=== PATIENT | male | born 1985 | race Hispanic/Latino ===

== ENCOUNTER 2020-07-09 14:44 | Emergency (ER) | payer BC, SELFPAY ==
--- NOTE | 2020-07-09 14:53 | ED.URI ---
HPI - URI/Sore Throat General Chief Complaint: Upper Respiratory Infection Stated Complaint: Cough,Sore Throat Time Seen by Provider: 07/09/20 14:53 Source: patient and RN notes reviewed History of Present Illness HPI Narrative: Patient is a 34-year-old male who presents the urgent care with complaints of a cough at night for the last 2 weeks. Patient states he started with a sore throat on Friday and a headache this morning. Patient states that he has been using Robitussin as well as NyQuil without relief. Patient denies of any known exposure to strep or flu. Denies any fever, chills, nausea, vomiting, shortness of breath. No other acute complaints. No acute distress noted. Patient aware of plan of care. Some parts of this dictation were generated by voice recognition software and may contain typographical and/or grammatical inaccuracies. Related Data Allergies Allergy/AdvReac Type Severity Reaction Status Date / Time No Known Allergies Allergy Mild Unverified 07/09/20 14:55 Review of Systems Review of Systems: Narrative: CONSTITUTIONAL: Denies fever, chills, or sweats. EYES: Denies visual changes, redness, or discharge. ENT: Reports of sore throat CARDIOVASCULAR: Denies chest pain, palpitations, or edema. RESPIRATORY: Reports of cough exacerbated at night without dyspnea GASTROINTESTINAL: Denies abdominal pain, nausea, vomiting, or diarrhea. GENITOURINARY: Denies dysuria or hematuria. SKIN: Denies rash or itching. MUSCULOSKELETAL: Denies back pain, joint pain, or myalgia. NEUROLOGIC: Denies headache, numbness, or weakness. All other systems reviewed are negative, except as documented in HPI. PMFSH Social History Social History Gender identity (if verbalized by the patient): Male Comments At the time of my signature, I reviewed and agree with the nursing past medical, surgical, social, and family history. There is no relevant family history pertinent to the patient complaint. Exam Narrative: Exam Narrative: GENERAL: This is a well-nourished, well-developed patient, in no apparent distress. HEAD: normocephalic, atraumatic. EYES: PERRL. Sclera clear/white. Vision is grossly intact. EARS: External ears normal, auditory canals clear and without drainage, TMs normal without perforation. Hearing grossly intact. NOSE: External nose normal with no obvious nasal discharge, nares without redness, no rhinorrhea. THROAT: Mucous membranes moist, moderate erythema noted to posterior oropharynx with mild bilateral tonsillar edema/erythema with mild postnasal drainage. NECK: Neck supple, non-tender without lymphadenopathy, masses or thyromegaly. CARDIOVASCULAR: Regular rate and rhythm without murmurs, gallops, or rubs. RESPIRATORY: Clear to auscultation. Breath sounds equal bilaterally. No wheezes, rales, or rhonchi. SKIN: warm, intact with no suspicious lesions or rash, good texture and turgor. NEURO: awake, alert, and oriented to person, place and time. There were no obvious focal neurologic abnormalities. EXTREMITIES: No clubbing, cyanosis, or edema. Course Vital Signs Vital signs: Vital Signs Temperature 98.1 F 07/09/20 15:01 Pulse Rate 69 07/09/20 15:01 Respiratory Rate 18 07/09/20 15:01 Blood Pressure 146/94 H 07/09/20 15:01 Pulse Oximetry 96 07/09/20 15:01 Temperature 98.1 F 07/09/20 15:01 Pulse Rate 69 07/09/20 15:01 Respiratory Rate 18 07/09/20 15:01 Blood Pressure 146/94 H 07/09/20 15:01 Pulse Oximetry 96 07/09/20 15:01 Reviewed-patient is informed that they may have pre-hypertension or hypertension based on a blood pressure reading in the department. I recommend the patient call the primary care provider listed on their discharge instructions or a physician of their choice this week to arrange follow-up for further evaluation of possible pre-hypertension or hypertension. MDM - URI/Sore Throat MDM Narrative Medical decision making narrative: Reviewed lab results with the patient.
[2020-07-09 15:01] VITALS: BP 146/94; PULSE 69; RESP 18; TEMP 36.7; O2SAT 96
== END 2020-07-09 15:21 | disposition home or self-care (01) ==
PROVIDERS: Emergency Provider Nurse Practitioner Family
DX: R05 Cough (principal); J02.9 Acute pharyngitis, unspecified; I10 Essential (primary) hypertension
CPT/HCPCS: 87081; 87880; 99213; G0463

== ENCOUNTER 2020-10-16 23:07 | Emergency (ER) | payer BC, SELFPAY ==
--- NOTE | ~2020-10-16 | CT_ITS ---
EXAMINATION: CT abdomen pelvis w con DATE: 10/17/2020 00:53 INDICATION: Diffuse abdominal pain TECHNIQUE: Computed tomography (CT) of the abdomen and pelvis was performed with 100 cc Omnipaque 350 intravenous contrast. The dose-length product was 637.46 mGy-cm. Automated exposure control and iter ative reconstruction technique were employed. COMPARISON: CT dated 05/11/2019 FINDINGS: There is dependent atelectasis. No significant pleural or pericardial effusion. Borderline heart size. There are mildly distended fluid-filled small bowel loops with air-fluid levels. There ar e areas of small bowel wall thickening findings suspicious for enteritis. There is moderate fluid and debris in the stomach. Fatty infiltration of the liver. The spleen, pancreas, adrenal glands and kidneys are unremarkable. G allbladder is contracted. No significant vascular abnormality. No lymphadenopathy. No free air or ronnie e fluid. Colonic diverticulosis without evidence for diverticulitis. No abnormal pelvic masses or flu id collections. No acute osseous abnormality. IMPRESSION: 1. Mildly dilated fluid-filled small bowel loops with air-fluid levels extending to the cecum. Findin gs suspicious for enteritis versus ileus. No definite obstruction. 2: Hepatic steatosis. Reviewed, dictated and finalized at location A. IMPRESSION: 1. Mildly dilated fluid-filled small bowel loops with air-fluid levels extendin g to the cecum. Findings suspicious for enteritis versus ileus. No definite obs truction. 2: Hepatic steatosis.
[2020-10-16 23:14] VITALS: BP 160/88; PULSE 69; RESP 18; TEMP 36.6; O2SAT 97
[2020-10-17 00:15] VITALS: BP 181/98; PULSE 75; RESP 20; O2SAT 100
[2020-10-17 00:22] LABS: Basophils Percent Auto 0.3 % (0.2-1.2); Eosinophils Absolute Auto 0.2 K/mm3 (0-0.3); Eosinophils Percent Auto 2.1 % (0-4.4); Hematocrit 43.5 % (42.0-52.0); Hemoglobin 14.6 g/dL (14.0-18.0); Immature Granulocyte Absolute 0.08 K/mm3 (0.00-0.031); Immature Granulocyte Percent A 0.8 % (0-0.5); Lymphocytes Absolute Auto 1.92 K/mm3 (0.9-3.2); Lymphocytes Percent Auto 20.4 % (18.3-44.2); Mean Corpuscular HGB Conc 33.6 g/dl (32-36); Mean Corpuscular Hemoglobin 30.7 pg (26-34); Mean Corpuscular Volume 91.6 fl (80-100); Monocytes Absolute Auto 0.7 K/mm3 (0.1-0.6); Monocytes Percent Auto 7.3 % (2.6-8.5); Neutrophils Absolute Auto 6.5 K/mm3 (1.3-6.7); Neutrophils Percent Auto 69.1 % (45.5-73.1); Platelet Count Result 236 k/mm3 (150-375); Red Blood Count 4.75 M/mm3 (4.6-6.20); Red Cell Distribution Width 12.6 % (11.5-14.5); White Blood Count 9.4 K/mm3 (4.5-10.0)
[2020-10-17 00:32] LABS: Alanine Aminotransferase 48 U/L (4-50); Albumin Level 3.9 g/dL (3.5-5.1); Alkaline Phosphatase 135 U/L (38-126); Anion Gap 11 mmol/L (8-16); Aspartate Amino Transferase 34 U/L (17-59); Bilirubin,Total 0.5 mg/dL (0.2-1.3); Blood Urea Nitrogen 10 mg/dL (9-20); Calcium 8.8 mg/dL (8.4-10.2); Carbon Dioxide 24 mmol/L (22-30); Chloride 103 mmol/L (98-107); Estimated CRCL calculation 103 ml/min; Estimated Glomerular Filt Rate > 60; Glucose 192 mg/dL (75-110); Lipase 174 U/L (23-300); Potassium 3.5 mmol/L (3.4-5.0); Sodium 138 mmol/L (137-145)
[2020-10-17] MEDS: BELLADONNA ALK/PHENOB ELIX 10 ML, MAG HYDROX/ALUMINUM HYD/SIMETH 30 ML, LIDOCAINE HCL 2... PO (01:09)
[2020-10-17 01:24] LABS: Add Urine Microscopic? YES; Appearance Urine Clear (Clear); Bilirubin Urine Negative (Negative); Blood Urine Negative (Negative); Color Urine Yellow (Yellow); Glucose Urine UA 1+ mg/dL (Negative); Ketones Urine Negative (Negative); Leukocyte Esterase Ur Negative LEU/UL (Negative); Mucus Urine Rare /lpf; Nitrate Urine Negative (Negative); Protein Urine Negative (Negative); Squamous Epithelial Cell Urine Rare /hpf (Few); WBC Urine 0-3 /hpf
--- NOTE | 2020-10-17 01:47 | ED.ABDPAIN ---
HPI - Abdominal Pain General Chief Complaint: Abdominal Pain Stated Complaint: abd pain in the mornings Time Seen by Provider: 10/16/20 23:31 Source: patient Mode of arrival: ambulatory Limitations: no limitations History of Present Illness HPI narrative: 35-year-old male Generally in good health Complains of his abdomen feeling bloated and uncomfortable he woke up this morning Symptoms more or less went away during the day but returned this evening and are more severe No constipation no diarrhea no vomiting and no fever Denies prior surgeries, does not smoke occasional drink or use NSAIDs Related Data Allergies Allergy/AdvReac Type Severity Reaction Status Date / Time No Known Allergies Allergy Mild Verified 10/17/20 00:38 Review of Systems Review of Systems: All systems reviewed & are unremarkable except as noted in HPI and below Constitutional: Constitutional: Reports no additional constitutional complaints, Denies chills, Denies fever(s) and Denies headache(s) Eyes: Eyes: Reports no additional eye complaints and Denies change in vision ENT: Denies headache(s) and Denies sore throat Cardiovascular: Cardiovascular: Denies chest pain and Denies dyspnea Respiratory: Respiratory: Denies cough and Denies dyspnea Gastrointestinal: Gastrointestinal: Reports abdominal pain, Reports bloating, Denies diarrhea, Reports nausea and Denies vomiting Genitourinary: Genitourinary: Denies dysuria and Denies urinary frequency Musculoskeletal: Musculoskeletal: Denies deformity, Denies arthralgias, Denies joint swelling and Denies numbness Integumentary/Breasts: Skin/Breast: Denies rash and Denies wounds Neurologic: Denies headache(s), Denies focal weakness and Denies numbness Psychiatric: Psychiatric: Reports no additional psychiatric complaints Endocrine: Endocrine: Reports no additional endocrine complaints Hematologic/Lymphatic: Hematologic/Lymphatic: Reports no additional hematologic/lymphatic complaints Allergic/Immunologic: Allergic/Immunologic: Reports no additional allergic/immunologic complaints [facility] Social History Social History Gender identity (if verbalized by the patient): Male Exam Const: General: cooperative and no acute distress Orientation/consciousness: patient oriented x3 (alert) HENMT: Head: normal to inspection, normocephalic and atraumatic Ears: external ears normal General nose exam: no epistaxis Eyes: Conjunctivae: conjunctivae normal EOM: EOMs intact bilaterally Neck: Neck: normal visual inspection, supple and no JVD Resp: Effort & Inspection: normal respiratory effort and not labored Auscultation: no rales, no rhonchi, no wheezes and other (BS =) Cardio: Rate: regular rate Rhythm: regular rhythm Heart sounds: no murmurs GI: GI Palp: Yes Soft to palpation, Yes Tenderness to palpation present (GI) (Mild diffuse), No Guarding due to palpation present (GI) and No Rebound tenderness present Other: Questionable distention Back/Spine/Pelvis: Back: no CVA tenderness Skin: General skin exam: normal color and no rashes or lesions noted Neuro: General: patient oriented x3 (alert) and moves all extremities Speech: normal speech Extrem: General: normal to inspection and no pedal edema Psych: Affect: normal affect Course Vital Signs Vital signs: Vital Signs Temperature 36.6 C 10/16/20 23:14 Pulse Rate 69 10/16/20 23:14 Respiratory Rate 18 10/16/20 23:14 Blood Pressure 160/88 H 10/16/20 23:14 Pulse Oximetry 97 10/16/20 23:14 Temperature 36.6 C 10/16/20 23:14 Pulse Rate 75 10/17/20 00:15 Respiratory Rate 20 10/17/20 00:15 Blood Pressure 181/98 H 10/17/20 00:15 Pulse Oximetry 100 10/17/20 00:15 MDM - Abdominal Pain Lab Data Result diagrams: 10/17/20 00:15 10/17/20 00:15 Labs: Lab Results 10/17/20 10/17/20 10/17/20 Range/Units 00:15 00:15 01:15 WBC 9.4 (4.5-10.0) K/mm3 RBC 4.75 (4.6-
[2020-10-17 01:50] LABS: Specific Grav Ur 1.051 (1.001-1.035)
[2020-10-17 02:06] VITALS: BP 168/90; PULSE 76; RESP 18; O2SAT 99
== END 2020-10-17 02:06 | disposition home or self-care (01) ==
PROVIDERS: Emergency Provider Emergency Medicine
DX: K56.7 Ileus, unspecified (principal)
CPT/HCPCS: 36415; 74177; 80053; 81001; 83690; 85025; 99284; A9270; Q9967

== ENCOUNTER 2021-07-29 08:20 | Emergency (ER) | payer BC, SELFPAY ==
--- NOTE | ~2021-07-29 | XR_ITS ---
EXAMINATION: XR abdomen/kub 1V DATE: 07/29/2021 09:00 INDICATION: 2 days of intermittent left anterior abdominal pain TECHNIQUE: A supine view of the abdomen on 2 radiographs was obtained. COMPARISON: CT dated 10/17/2020 FINDINGS: Small amount of gas scattered throughout the small bowel and colon with moderate amount stool in the ascending colon. No dilated loops of gas-filled bowel to suggest obstruction. Lung bases are clear. B ones are unremarkable. IMPRESSION: 1. Normal bowel gas pattern. Reviewed, dictated and finalized at location A.
[2021-07-29 08:28] VITALS: BP 153/88; PULSE 63; RESP 16; TEMP 36.3; O2SAT 98
--- NOTE | 2021-07-29 08:50 | ED.ABDPAIN ---
HPI - Abdominal Pain General Chief Complaint: Unspecified Stated Complaint: left side pain Time Seen by Provider: 07/29/21 08:42 Source: patient and RN notes reviewed Mode of arrival: ambulatory Limitations: no limitations History of Present Illness HPI narrative: Patient presents today complaining of intermittent left upper quadrant abdominal pain x2 days. Describes the pain as sharp and stabbing, but is currently pain-free. Denies any additional associated symptoms to include fever, nausea, vomiting, diarrhea, constipation. Denies any urinary symptoms. States that symptoms last for approximately 2 minutes with a, low that rapidly resolve. Last bowel movement was yesterday. He has tried no medication for symptoms prior to arrival. History of ileus in the past. MD elicited complaint: abdominal pain Related Data Allergies Allergy/AdvReac Type Severity Reaction Status Date / Time No Known Allergies Allergy Mild Verified 07/29/21 08:42 Review of Systems Review of Systems: CONSTITUTIONAL: Denies body aches, fever, chills, or sweats. EYES: Denies visual changes, redness, or discharge. ENT: Denies rhinorrhea, congestion, sore throat, or otalgia. CARDIOVASCULAR: Denies chest pain, palpitations, or edema. RESPIRATORY: Denies cough or dyspnea. GASTROINTESTINAL: Denies nausea, vomiting, or diarrhea. + Abdominal pain GENITOURINARY: Denies dysuria or hematuria. SKIN: Denies rash, itching, or wounds. MUSCULOSKELETAL: Denies back pain, joint pain, or myalgia. NEUROLOGIC: Denies headache, numbness, tingling, or weakness. PSYCH: Denies depression or anxiety. PMFSH Social History Social History Gender identity (if verbalized by the patient): Male Comments At time of signature, I have reviewed and agree with nursing past medical, surgical, social and family history unless otherwise noted. Please see nursing chart for further information. There is no relevant family history pertinent to the presenting complaint Exam Narrative: GENERAL: Well-appearing, well-nourished, and in no acute distress. HEAD: Normocephalic, atraumatic. EYES: EOMI. No redness or drainage. Conjunctivae normal. ENT: Mucous membranes pink and moist. NECK: Normal AROM. CHEST: No respiratory distress. Clear to auscultation. HEART: Regular rate and rhythm. No murmur appreciated. Normal peripheral pulses. ABDOMEN: Soft, nontender, nondistended, normal active bowel sounds. SKIN: Warm, dry, no rash. Capillary refill normal. Normal skin turgor. NEURO: No focal deficits. Alert and oriented x3. Gait steady. PSYCH: Normal affect. No signs of depression or anxiety. Course Course Emergency Course: Patient has appearance in no other symptoms. His abdominal x-ray is negative. He declines ER transfer at this time. Anticipatory guidance has been given. Level of Care: Express Care Visit Vital Signs Vital signs: Vital Signs Temperature 97.3 F L 07/29/21 08:28 Pulse Rate 63 07/29/21 08:28 Respiratory Rate 16 07/29/21 08:28 Blood Pressure 153/88 H 07/29/21 08:28 Pulse Oximetry 98 07/29/21 08:28 Temperature 97.3 F L 07/29/21 08:28 Pulse Rate 63 07/29/21 08:28 Respiratory Rate 16 07/29/21 08:28 Blood Pressure 153/88 H 07/29/21 08:28 Pulse Oximetry 98 07/29/21 08:28 Reviewed. Pt has been instructed to follow up with his PCP regarding his elevated blood pressure today. MDM - Abdominal Pain Differential Diagnosis Differential diagnosis: Likely abdominal pain, constipation, pancreatitis and other (Enteritis, ileus) Imaging Data Radiologist's impression: ITS Impressions Abdomen X-Ray 07/29/21 09:00 IMPRESSION: 1. Normal bowel gas pattern. Critical Care Time Critical Care Time Critical Care Time: No Discharge Plan Discharge Clinical Impression: Left sided abdominal pain Patient Disposition: Home, Self-Care Condition: Stable Instructions: Abdom
== END 2021-07-29 09:25 | disposition home or self-care (01) ==
PROVIDERS: Emergency Provider Nurse Practitioner
DX: R10.9 Unspecified abdominal pain (principal); I10 Essential (primary) hypertension
CPT/HCPCS: 74018; 99213; G0463

== ENCOUNTER 2021-07-29 22:23 | Emergency (ER) | payer BC, SELFPAY ==
--- NOTE | ~2021-07-29 | CT_ITS ---
EXAMINATION: CT abdomen pelvis w con DATE: 07/30/2021 00:56 INDICATION: Upper abdominal pain TECHNIQUE: Computed tomography (CT) of the abdomen and pelvis was performed with 100 mL Omnipaque-350 intravenous contrast. Automated exposure control and iterative reconstruction technique were employe d. The dose-length product was 588.29 mGy-cm. COMPARISON: 10/17/2020 FINDINGS: Lung bases are clear. Borderline heart size. No pericardial or pleural effusion. Diffuse hepatic stea tosis. Gallbladder, spleen, pancreas, bilateral adrenal glands and kidneys are normal. There is mild colonic diverticulosis with a sigmoid predominance. There is no adjacent inflammatory change to sugg est diverticulitis. Small bowel and appendix are normal. Bladder is normal. No free intraperitoneal gas or fluid. No pathologically enlarged abdominal or pelvic lymphadenopathy. Mild thoracolumbar levo curvature. IMPRESSION: 1. No acute intra-abdominal/pelvic process. Line 2. Diffuse hepatic steatosis. Reviewed, dictated and finalized at location A.
[2021-07-29 22:26] VITALS: BP 163/91; PULSE 77; RESP 18; TEMP 36.1; O2SAT 98
--- NOTE | 2021-07-29 22:46 | ED.ABDPAIN ---
HPI - Abdominal Pain General Chief Complaint: Abdominal Pain Stated Complaint: lt upper abd pain Time Seen by Provider: 07/29/21 22:29 History of Present Illness HPI narrative: 35-year-old male presents to the emergency room complaints of left upper quadrant abdominal pain that radiates to the periumbilical area. Patient states pain has been present since yesterday. Was already evaluated at local urgent care diagnosed with generalized abdominal pain and sent home with dicyclomine. Patient states he has had no relief with the dicyclomine. Denies nausea vomiting diarrhea or constipation. Denies fever. Denies any abdominal surgeries. Patient reports he is a social alcohol user. Related Data Allergies Allergy/AdvReac Type Severity Reaction Status Date / Time No Known Allergies Allergy Mild Verified 07/29/21 08:42 Review of Systems Review of Systems: CONSTITUTIONAL: Denies fever, chills, or sweats. EYES: Denies visual changes, redness, or discharge. ENT: Denies rhinorrhea, congestion, sore throat, or otalgia. CARDIOVASCULAR: Denies chest pain, palpitations, or edema. RESPIRATORY: Denies cough or dyspnea. GASTROINTESTINAL: Reports abdominal pain GENITOURINARY: Denies dysuria or hematuria. SKIN: Denies rash or itching. MUSCULOSKELETAL: Denies back pain, joint pain, or myalgia. NEUROLOGIC: Denies headache, numbness, dizziness, or weakness. PSYCHIATRIC: Denies anxiety or depression. [facility] Social History Social History Gender identity (if verbalized by the patient): Male Exam Narrative: GENERAL: Well-appearing, well-nourished, and in no acute distress. HEAD: Normocephalic, atraumatic. EYES: PERRLA and EOMI. ENT: Nares clear, no rhinorrhea or epistaxis. Mucous membranes moist. CHEST: Clear to auscultation. No respiratory distress. No wheezes rales or rhonchi HEART: Regular rate and rhythm. No murmur heard. Normal peripheral pulses. ABDOMEN: Soft and nondistended. No guarding. No rebound tenderness. Left upper quadrant and periumbilical tenderness. Bowel sounds present in all 4 quadrants. EXTREMITIES: Normal range of motion. No edema. SKIN: Warm, dry, no rash. NEURO: No focal deficits. Alert and oriented x3. PSYCH: Normal mood and affect. Course Vital Signs Vital signs: Vital Signs Temperature 36.1 C L 07/29/21 22:26 Pulse Rate 77 07/29/21 22:26 Respiratory Rate 18 07/29/21 22:26 Blood Pressure 163/91 H 07/29/21 22:26 Pulse Oximetry 98 07/29/21 22:26 Temperature 36.1 C L 07/29/21 22:26 Pulse Rate 77 07/29/21 22:26 Respiratory Rate 18 07/29/21 22:26 Blood Pressure 163/91 H 07/29/21 22:26 Pulse Oximetry 98 07/29/21 22:26 MDM - Abdominal Pain MDM Narrative Medical decision making narrative: 35-year-old male comes emergency room cute onset of left upper quadrant pain started 2 days ago. Patient was seen in the urgent care yesterday and diagnosed with generalized abdominal pain and sent home on dicyclomine. Patient states the dicyclomine was not helping his discomfort. Patient stated he was having normal bowel movements. CT scans showed no acute abnormalities, on the scalp films a looks like he is got a large amount of bowel gas in the left upper quadrant. This is likely the cause of the patient's discomfort. CMP showed a blood sugar of 301, A1c was elevated over 6. We will start the patient on Metformin and have him follow-up with a primary care physician this week. CBC was unremarkable Differential Diagnosis Differential diagnosis: Likely abdominal pain Lab Data Attestation: I reviewed the patient's lab results. Imaging Data Radiologist's impression: CT abd/pelvis: Hepatic steatosis, otherwise no acute findings Discharge Plan Discharge Clinical Impression: Abdominal pain Qualifiers: Abdominal location: right upper quadrant Qualified Code(s): R10.11 - Right upper quadrant pain Diabetes Qualifiers: Diabetes mellitus
[2021-07-29] MEDS: ONDANSETRON INJ 4 MG/2 ML VIAL IV PUSH (23:02)
[2021-07-29] MEDS: SODIUM CHLORIDE 0.9% IV 1,000 ML 999 ML IV CONT (23:02)
[2021-07-29] MEDS: MORPHINE SULFATE (*CRX) 4 MG/ML INJ IV PUSH (23:02)
[2021-07-29 23:14] LABS: Basophils Absolute Auto 0.1 K/mm3 (0.0-0.1); Basophils Percent Auto 0.7 % (0.2-1.2); Eosinophils Absolute Auto 0.1 K/mm3 (0-0.3); Hematocrit 45.4 % (42.0-52.0); Hemoglobin 15.5 g/dL (14.0-18.0); Immature Granulocyte Absolute 0.07 K/mm3 (0.00-0.031); Immature Granulocyte Percent A 0.8 % (0-0.5); Lymphocytes Absolute Auto 2.27 K/mm3 (0.9-3.2); Lymphocytes Percent Auto 26.4 % (18.3-44.2); Mean Corpuscular HGB Conc 34.1 g/dl (32-36); Mean Corpuscular Volume 90.8 fl (80-100); Mean Platelet Volume 10.1 fl (7.4-10.4); Monocytes Absolute Auto 0.6 K/mm3 (0.1-0.6); Neutrophils Absolute Auto 5.5 K/mm3 (1.3-6.7); Neutrophils Percent Auto 64.1 % (45.5-73.1); Platelet Count Result 272 k/mm3 (150-375); Red Cell Distribution Width 12.6 % (11.5-14.5); White Blood Count 8.6 K/mm3 (4.5-10.0)
[2021-07-29 23:17] LABS: Add Urine Microscopic? YES; Appearance Urine Clear (Clear); Bilirubin Urine Negative (Negative); Blood Urine Negative (Negative); Color Urine Straw (Yellow); Glucose Urine UA 3+ mg/dL (Negative); Ketones Urine Negative (Negative); Leukocyte Esterase Ur Negative LEU/UL (Negative); Nitrate Urine Negative (Negative); Protein Urine Negative (Negative); RBC Urine 0-2 /hpf (0-2); Specific Grav Ur 1.023 (1.001-1.035); Urobilinogen Urine Negative mg/dL (<2.0); WBC Urine 0-3 /hpf
[2021-07-29 23:23] LABS: Alanine Aminotransferase 51 U/L (4-50); Albumin Level 4.4 g/dL (3.5-5.1); Alkaline Phosphatase 133 U/L (38-126); Anion Gap 10 mmol/L (8-16); Aspartate Amino Transferase 37 U/L (17-59); Bilirubin,Total 0.5 mg/dL (0.2-1.3); Blood Urea Nitrogen 15 mg/dL (9-20); Calcium 8.4 mg/dL (8.4-10.2); Carbon Dioxide 25 mmol/L (22-30); Chloride 100 mmol/L (98-107); Estimated CRCL calculation 81 ml/min; Estimated Glomerular Filt Rate > 60; Glucose 305 mg/dL (65-110); Lipase 213 U/L (23-300); Potassium 3.6 mmol/L (3.4-5.0); Sodium 135 mmol/L (137-145)
[2021-07-30 00:18] VITALS: BP 134/85; PULSE 69; RESP 16; O2SAT 100
[2021-07-30 00:19] LABS: Hemoglobin A1C 6.9 % (<5.7)
[2021-07-30] MEDS: HYDROmorphone HCL INJ (*CRX) 1 MG/ML SYR IV PUSH (00:19)
[2021-07-30] MEDS: SODIUM CHLORIDE 0.9% IV 1,000 ML 999 ML IV CONT (01:02)
[2021-07-30 01:07] LABS: Glucose Point of Care 213 mg/dl (65-105)
[2021-07-30] MEDS: MAGNESIUM CITRATE 300 ML BTL PO (02:33)
[2021-07-30 02:36] VITALS: BP 146/92; PULSE 64; RESP 18; O2SAT 99
== END 2021-07-30 02:40 | disposition home or self-care (01) ==
PROVIDERS: Emergency Provider Nurse Practitioner Family; PCP Family Medicine
DX: R10.12 Left upper quadrant pain (principal); E11.9 Type 2 diabetes mellitus without complications; K76.0 Fatty (change of) liver, not elsewhere classified
CPT/HCPCS: 36415; 74177; 80053; 81001; 82948; 83036; 83690; 85025; 96361; 96374; 96375; 99284; A9270; J1170; J2270; J2405; J7030; Q9967

== ENCOUNTER 2025-01-12 13:34 | Emergency (ER) | payer BC, SELFPAY ==
[2025-01-12 13:50] VITALS: BP 136/89; PULSE 85; RESP 18; TEMP 36.7; O2SAT 99
--- NOTE | 2025-01-12 14:18 | ED_ITS ---
HPI - Nausea/Vomiting/Diarrhea General Chief complaint: Nausea/Vomiting/Diarrhea Stated complaint: stomach pain Time Seen by Provider: 01/12/25 14:18 Source: patient Mode of arrival: ambulatory Limitations: no limitations History of Present Illness HPI Narrative: 39-year-old male presents with complaint of abdominal bloating, constipation, intermittent nausea for 3 days. Patient states he ate a snack from [employer] on Friday. About 30 minutes later he was having abdominal cramping. the last 2 days he has strain to have a bowel movement. Feels bloated. Has not ate any solid food. Tried MiraLax but vomited it up. Has not vomited since then. No nausea at this time. Is able to drink water and keep it down. Patient is well- appearing and smiling. All systems reviewed and negative except as noted above. Related Data Allergies Allergy/AdvReac Type Severity Reaction Status Date / Time No Known Allergies Allergy Mild Verified 01/12/25 13:58 [facility] Social History Social History Gender identity (if verbalized by the patient): Male Comments At time of signature, agree with nursing past medical, surgical, social and family history. There is no relevant family history pertinent to the presenting complaint. Exam Narrative: GENERAL: This is a well-nourished, well-developed patient, in no apparent distress. HEAD: normocephalic, atraumatic. EYES: PERRL. Sclera clear/white. Vision is grossly intact. EARS: External ears normal NOSE: External nose normal NECK: Neck supple, non-tender without lymphadenopathy, masses or thyromegaly. CARDIOVASCULAR: Regular rate and rhythm without murmurs, gallops, or rubs. RESPIRATORY: Clear to auscultation. Breath sounds equal bilaterally. No wheezes, rales, or rhonchi. GASTROINTESTINAL: Abdomen soft tender to upper ABD, epigastric and umbilical, nondistended. Bowel sounds are hypoactive. No hepato-splenomegaly, or palpable masses. No guarding. SKIN: warm, Dry, intact with no suspicious lesions or rash, good texture and turgor. NEURO: awake, alert, and oriented to person, place and time. There were no obvious focal neurologic abnormalities. EXTREMITIES: No joint tenderness, effusion, or edema noted. Course Course Level of Care: Express Care Visit Vital Signs Vital signs: Vital Signs Temperature 36.7 C 01/12/25 13:50 Pulse Rate 85 01/12/25 13:50 Respiratory Rate 18 01/12/25 13:50 Blood Pressure 136/89 01/12/25 13:50 Pulse Oximetry 99 01/12/25 13:50 Oxygen Delivery Room Air 01/12/25 13:50 Temperature 36.7 C 01/12/25 13:50 Pulse Rate 85 01/12/25 13:50 Respiratory Rate 18 01/12/25 13:50 Blood Pressure 136/89 01/12/25 13:50 Pulse Oximetry 99 01/12/25 13:50 Oxygen Delivery Room Air 01/12/25 13:50 reviewed MDM - Nausea/Vomiting/Diarrhea MDM Narrative Medical decision making narrative: BS hypoactive. tender to upper ABD and umbilicus. Denies N/V. unable to do KUB at [facility] care due to no x-ray tech. recommend transfer to ER to CT scan. pt declined. Wants to go home and try laxative. pt is well appearing, smiling and laughing durin exam. just keeps saying belly bloated. Differential Diagnosis Differential diagnosis: Likely gastroenteritis and other (constipation, bowel obstruction, diverticulitis) Discharge Plan Discharge Clinical Impression: Constipation Patient Disposition: Home Condition: Stable Instructions: Constipation (ED) Additional Instructions: Purchase over the counter gas x and dulcolax and take as directed on packaging. Drink at least 64 ounces a water a day. Increase fiber in diet. Exercise for at least 30 minutes a day. If you continue to have abdominal discomfort, unable to have a bowel movement go to the ER. Patient Language: [place]i Follow-up/Referrals: UNKNOWN,DOCTOR [Primary Care Provider] Stand Alone Forms: Work/School Release IP Time of Disposition: 14:31
== END 2025-01-12 14:38 | disposition home or self-care (01) ==
PROVIDERS: Emergency Provider Nurse Practitioner Family
DX: K59.00 Constipation, unspecified (principal); I10 Essential (primary) hypertension; E11.9 Type 2 diabetes mellitus without complications
CPT/HCPCS: 99211; G0463